=== PATIENT | male | born 2005 | race African-American/Black ===

== ENCOUNTER 2024-03-03 14:09 | Emergency (ER) | payer MEDICAID ==
[~2024-03-03] VITALS: Ht 188 cm; Wt 81.0 kg
[2024-03-03 14:10] VITALS: TEMP 98.4; O2SAT 98
[2024-03-03 15:31] LABS: BASOPHILS % 0.3 % (0.0-2.0); EOSINOPHILS % 0.8 % (0.0-5.0); HEMATOCRIT. 44.6 % (42.0-52.0); HEMOGLOBIN. 14.9 g/dL (14.0-18.0); LYMPHOCYTES % 7.7 % (20.0-50.0); MEAN CORPUSCULAR HEMOGLOBIN 30.9 pg (28.0-32.0); MEAN CORPUSCULAR HGB CONC 33.4 g/dL (31.0-37.0); MEAN CORPUSCULAR VOLUME 92.5 fL (80.0-94.0); MONOCYTES % 7.2 % (2.0-8.0); RED BLOOD CELL COUNT 4.82 mill/uL (4.7-6.1)
[2024-03-03 15:35] LABS: CHLORIDE 106 mEq/L (98-107); POTASSIUM 4.2 mEq/L (3.5-5.1); SODIUM 140 mEq/L (136-145)
[2024-03-03 15:36] LABS: CARBON DIOXIDE 28 mEq/L (21-32)
[2024-03-03 15:37] LABS: CALCIUM 10.1 mg/dL (8.7-10.4)
[2024-03-03 15:41] LABS: GLUCOSE 91 mg/dL (70-105); UREA NITROGEN BLOOD 12 mg/dL (9-23)
[2024-03-03 15:45] LABS: DIFFERENTIAL COMMENT 1
[2024-03-03 15:50] LABS: ETHANOL BLOOD < 10 mg/dL (<10)
[2024-03-03] MEDS: ACETAMINOPHEN 325MG TABLET PO ONE (15:53)
[2024-03-03 15:58] VITALS: BP 138/69; PULSE 90; RESP 18
[2024-03-03] MEDS: IBUPROFEN 600MG TABLET PO ONE (15:58)
[2024-03-03 16:24] LABS: MEAN PLATELET VOLUME 11.5 fl (7.4-10.4)
[2024-03-03 16:26] LABS: PLATELET 76 x1000/uL (130-400)
[2024-03-03] MEDS ORDERED: CYCL10TA21 MT (17:06)
== END 2024-03-03 17:23 | disposition home or self-care (01) ==
LOC: ER 14:09
DX: R56.9 Unspecified convulsions (principal); Z98.890 Other specified postprocedural states
CPT/HCPCS: 36415; 72170; 80048; 80320; 83735; 85025; 93005; 99285; G0480

== ENCOUNTER 2024-03-28 06:16 | Emergency (ER) | payer MEDICAID ==
[~2024-03-28] VITALS: Ht 188 cm; Wt 82.0 kg
[~2024-03-28 06:16] MED LIST: CYCL10TA21 MT
[2024-03-28 06:18] VITALS: O2SAT 100
[2024-03-28] MEDS: LEVETIRACETAM 1000MG PREMIX 100 ML IV ONE (07:06)
[2024-03-28 07:41] VITALS: TEMP 36.50292
[2024-03-28 08:01] LABS: BASOPHILS % 0.6 % (0.0-2.0); EOSINOPHILS % 4.3 % (0.0-5.0); HEMATOCRIT. 50.7 % (42.0-52.0); HEMOGLOBIN. 16.6 g/dL (14.0-18.0); LYMPHOCYTES % 24.6 % (20.0-50.0); MEAN CORPUSCULAR HEMOGLOBIN 29.9 pg (28.0-32.0); MEAN CORPUSCULAR HGB CONC 32.8 g/dL (31.0-37.0); MEAN CORPUSCULAR VOLUME 91.3 fL (80.0-94.0); MONOCYTES % 7.4 % (2.0-8.0); NEUTROPHILS % 63.1 % (40.0-76.0); RED BLOOD CELL COUNT 5.56 mill/uL (4.7-6.1); RED CELL DISTRIBUTION WIDTH 13.9 % (11.6-14.6)
[2024-03-28 08:02] LABS: DIFFERENTIAL COMMENT 1
[2024-03-28 08:04] LABS: CHLORIDE 111 mEq/L (98-107); POTASSIUM 4.3 mEq/L (3.5-5.1); SODIUM 144 mEq/L (136-145)
[2024-03-28 08:05] LABS: CALCIUM 10.4 mg/dL (8.7-10.4); CARBON DIOXIDE 28 mEq/L (21-32)
[2024-03-28 08:10] LABS: GLUCOSE 105 mg/dL (70-105); UREA NITROGEN BLOOD 9 mg/dL (9-23)
[2024-03-28 08:24] LABS: ETHANOL BLOOD < 10 mg/dL (<10)
[2024-03-28 09:13] LABS: CLARITY URINE CLEAR (CLEAR); COLOR URINE YELLOW (YELLOW); GLUCOSE URINE NEGATIVE (NEGATIVE); KETONES URINE NEGATIVE (NEGATIVE); LEUKOCYTE ESTERASE URINE NEGATIVE (NEGATIVE); NITRITE URINE NEGATIVE (NEGATIVE); OCCULT BLOOD URINE NEGATIVE (NEGATIVE); PH URINE 6.5 (4.5-8.0); PROTEIN URINE NEGATIVE (NEGATIVE); SPECIFIC GRAVITY URINE 1.014 (1.005-1.030); UROBILINOGEN URINE 0.2 E.U./dL (0.2-1.0)
[2024-03-28 09:37] LABS: *AMPHETAMINES SCREEN URINE NEGATIVE (NEGATIVE); *BARBITURATES SCREEN URINE NEGATIVE (NEGATIVE); *BENZODIAZEPINES SCREEN URINE NEGATIVE (NEGATIVE); *COCAINE SCREEN URINE NEGATIVE (NEGATIVE); CANNABINOID URINE SCREEN PRESUMPTIVE POSITIVE (NEGATIVE); METHADONE URINE SCREEN NEGATIVE (NEGATIVE); OPIATES URINE SCREEN NEGATIVE (NEGATIVE); PHENCYCLIDINE URINE SCREEN NEGATIVE (NEGATIVE)
[2024-03-28 09:38] LABS: ECSTASY MDMA SCREEN URINE NEGATIVE (NEGATIVE)
[2024-03-28 10:19] LABS: MEAN PLATELET VOLUME 12.9 fl (7.4-10.4); PLATELET 82 x1000/uL (130-400)
[2024-03-28 10:35] VITALS: BP 152/80; PULSE 89; RESP 12; O2SAT 100
== END 2024-03-28 10:36 | disposition home or self-care (01) ==
LOC: ER 06:16
DX: G40.909 Epilepsy, unspecified, not intractable, without status epilepticus (principal); F17.200 Nicotine dependence, unspecified, uncomplicated; F12.90 Cannabis use, unspecified, uncomplicated
CPT/HCPCS: 80305; 80048; 81003; 80320; 85025; 36415; 96365; 96366; 99284; J1953; Z7610 ×3; G0480

== ENCOUNTER 2024-04-13 07:07 | Emergency (ER) | payer MEDICAID ==
[~2024-04-13] VITALS: Ht 188 cm; Wt 86.0 kg
[2024-04-13 07:08] VITALS: O2SAT 100
[2024-04-13] MEDS ORDERED: LEVETIRACETAM 500MG/5ML CUP PO SCH (07:15)
[2024-04-13] MEDS: LEVETIRACETAM 500MG/5ML CUP PO SCH (08:15)
[2024-04-13] MEDS: ACETAMINOPHEN 325MG TABLET PO ONE (09:01)
[2024-04-13 10:01] LABS: BASOPHILS % 0.6 % (0.0-2.0); EOSINOPHILS % 3.9 % (0.0-5.0); HEMATOCRIT. 48.7 % (42.0-52.0); HEMOGLOBIN. 15.8 g/dL (14.0-18.0); LYMPHOCYTES % 17.4 % (20.0-50.0); MEAN CORPUSCULAR HEMOGLOBIN 29.8 pg (28.0-32.0); MEAN CORPUSCULAR HGB CONC 32.5 g/dL (31.0-37.0); MEAN CORPUSCULAR VOLUME 91.8 fL (80.0-94.0); MONOCYTES % 6.1 % (2.0-8.0); RED BLOOD CELL COUNT 5.31 mill/uL (4.7-6.1); RED CELL DISTRIBUTION WIDTH 13.8 % (11.6-14.6); WHITE BLOOD COUNT 9.6 x1000/uL (4.5-11.0)
[2024-04-13 10:02] LABS: CHLORIDE 117 mEq/L (98-107); POTASSIUM 3.6 mEq/L (3.5-5.1); SODIUM 148 mEq/L (136-145)
[2024-04-13 10:03] LABS: CARBON DIOXIDE 22 mEq/L (21-32)
[2024-04-13 10:04] LABS: CALCIUM 7.7 mg/dL (8.7-10.4)
[2024-04-13 10:08] LABS: CREATININE 0.8 mg/dL (0.6-1.3)
[2024-04-13 10:09] LABS: GLUCOSE 99 mg/dL (70-105); UREA NITROGEN BLOOD 8 mg/dL (9-23)
[2024-04-13 10:28] LABS: DIFFERENTIAL COMMENT 1
[2024-04-13 10:54] LABS: PLATELET 96 x1000/uL (130-400)
[2024-04-13 11:00] VITALS: BP 120/66; PULSE 64; RESP 10; O2SAT 99
== END 2024-04-13 11:25 | disposition home or self-care (01) ==
LOC: ER 07:07
DX: R56.9 Unspecified convulsions (principal); F12.10 Cannabis abuse, uncomplicated
CPT/HCPCS: 36415; 80048; 85025; 99284

== ENCOUNTER 2025-05-21 23:36 | Emergency (ER) | payer OTHER, MEDICAID ==
[~2025-05-21] VITALS: Ht 180.3 cm; Wt 82.0 kg
[2025-05-21 23:42] VITALS: O2SAT 100
[2025-05-22] MEDS ORDERED: HYDROCODONE/ACETAMINOPHEN 5/325MG TABLET PO ONE (00:15)
[2025-05-22] MEDS: LIDOCAINE HCL/EPINEPHRINE 1%-EPI 1:100,000 10ML VIAL INFIL ONE (00:15)
[2025-05-22] MEDS ORDERED: ONDANSETRON 4MG ODT PO ONE (00:15)
[2025-05-22] MEDS: MORPHINE SULFATE 2 MG/ML INJ (NOT FOR IM USE) IV ONE (00:21)
[2025-05-22] MEDS: ONDANSETRON HCL 4MG/2ML INJ IV ONE (00:21)
[2025-05-22] MEDS: KETOROLAC 30MG/ML VIAL IV ONE (03:08)
[2025-05-22] MEDS ORDERED: IBUP-2028 MT (04:30)
[2025-05-22] MEDS ORDERED: LIDO-53 TP (04:30)
[2025-05-22] MEDS ORDERED: TOPUD PO (04:30)
[2025-05-22] MEDS ORDERED: METH-653 MT (04:30)
[2025-05-22 05:00] VITALS: BP 132/67; PULSE 65; RESP 15; TEMP 36.7; O2SAT 98
== END 2025-05-22 05:09 | disposition home or self-care (01) ==
LOC: ER 23:36
DX: S01.511A Laceration without foreign body of lip, initial encounter (principal); G40.909 Epilepsy, unspecified, not intractable, without status epilepticus; F12.90 Cannabis use, unspecified, uncomplicated; F41.9 Anxiety disorder, unspecified; V89.2XXA Person injured in unspecified motor-vehicle accident, traffic, initial encounter; Y93.89 Activity, other specified; Y92.410 Unspecified street and highway as the place of occurrence of the external cause; Y99.8 Other external cause status
CPT/HCPCS: 99285; 12016; 70450; 96374; 96375; 71045; 73080; 73562; 70486; 72125; J1885; J2405; J2270; Q0162

== ENCOUNTER 2025-05-26 13:11 | Emergency (ER) | payer MEDICAID ==
[~2025-05-26] VITALS: Ht 190.5 cm; Wt 109.0 kg
[~2025-05-26 13:11] MED LIST changes: +IBUP-2028 MT; +LIDO-53 TP; +METH-653 MT; +TOPUD PO
[2025-05-26 13:22] VITALS: O2SAT 99
[2025-05-26] MEDS: IBUPROFEN 600MG TABLET PO ONE (14:38)
[2025-05-26] MEDS ORDERED: BO1 TP (15:04)
[2025-05-26] MEDS ORDERED: ERYT1OIN6 LEFTEYE (15:04)
[2025-05-26] MEDS: TETRACAINE 0.5% OPHTH DROPS 4ML BOTHEYE ONE (15:17)
[2025-05-26 15:18] VITALS: BP 121/66; PULSE 70; RESP 15; TEMP 36.7; O2SAT 99
[2025-05-26] MEDS: FLUORESCEIN SODIUM 1MG/STRIP LEFTEYE ONE (15:18)
== END 2025-05-26 15:21 | disposition home or self-care (01) ==
LOC: ER 13:11
DX: H10.9 Unspecified conjunctivitis (principal); M19.90 Unspecified osteoarthritis, unspecified site; F41.9 Anxiety disorder, unspecified; Z79.899 Other long term (current) drug therapy
CPT/HCPCS: 99283